=== PATIENT | male | born 1990 | race Caucasian/White ===

== ENCOUNTER → 2020-07-13 | Outpatient (CLI) | payer SELFPAY | LOC: M OUTALCOH 10:30 | PROVIDERS: ATTEND Psychiatry & Neurology Addiction Medicine | DX: F11.20 Opioid dependence, uncomplicated (principal) ==

== ENCOUNTER → 2020-08-25 | Outpatient (CLI) | payer OTHER, SELFPAY | LOC: M OUTALCOH 12:57 | PROVIDERS: ATTEND Psychiatry & Neurology Addiction Medicine | DX: Z13.39 Encounter for screening examination for other mental health and behavioral disorders (principal); F11.20 Opioid dependence, uncomplicated ==

== ENCOUNTER 2020-09-09 13:38 | Outpatient (RCR) | payer SELFPAY | END 2020-09-14 | LOC: M OUTALCOH 13:38 | PROVIDERS: ATTEND Psychiatry & Neurology Addiction Medicine | DX: F11.20 Opioid dependence, uncomplicated (principal); F14.10 Cocaine abuse, uncomplicated; F12.20 Cannabis dependence, uncomplicated; F17.200 Nicotine dependence, unspecified, uncomplicated ==

== ENCOUNTER → 2020-10-15 | Outpatient (RCR) | payer OTHER, SELFPAY | LOC: M OUTALCOH 09-15 13:42 | PROVIDERS: ATTEND Psychiatry & Neurology Addiction Medicine | DX: F11.20 Opioid dependence, uncomplicated (principal); F14.10 Cocaine abuse, uncomplicated; F12.20 Cannabis dependence, uncomplicated; F17.200 Nicotine dependence, unspecified, uncomplicated | CPT/HCPCS: 90832; 90834; H0038 ==

== ENCOUNTER 2020-11-12 10:00 | Outpatient (RCR) | payer OTHER | END 2020-11-15 | LOC: M OUTALCOH 10:00 | PROVIDERS: ATTEND Psychiatry & Neurology Addiction Medicine | DX: F11.11 Opioid abuse, in remission (principal); F14.11 Cocaine abuse, in remission; F12.11 Cannabis abuse, in remission; F17.200 Nicotine dependence, unspecified, uncomplicated ==

== ENCOUNTER 2020-12-09 14:12 | Outpatient (RCR) | payer OTHER | END 2020-12-13 | LOC: M OUTALCOH 14:12 | PROVIDERS: ATTEND Psychiatry & Neurology Addiction Medicine | DX: F11.11 Opioid abuse, in remission (principal); F14.11 Cocaine abuse, in remission; F12.11 Cannabis abuse, in remission; F17.200 Nicotine dependence, unspecified, uncomplicated ==

== ENCOUNTER → 2021-01-13 | Outpatient (RCR) | payer OTHER | LOC: M OUTALCOH 12-14 14:00 | PROVIDERS: ATTEND Psychiatry & Neurology Psychiatry | DX: F11.11 Opioid abuse, in remission (principal); F14.11 Cocaine abuse, in remission; F12.11 Cannabis abuse, in remission; F17.200 Nicotine dependence, unspecified, uncomplicated ==

== ENCOUNTER → 2021-02-12 | Outpatient (RCR) | payer OTHER | LOC: M OUTALCOH 01-18 16:00 | PROVIDERS: ATTEND Psychiatry & Neurology Psychiatry | DX: F11.11 Opioid abuse, in remission (principal); F14.11 Cocaine abuse, in remission; F12.11 Cannabis abuse, in remission; F17.200 Nicotine dependence, unspecified, uncomplicated ==

== ENCOUNTER 2021-03-05 14:00 | Outpatient (RCR) | payer OTHER | END 2021-03-15 | LOC: M OUTALCOH 14:00 | PROVIDERS: ATTEND Psychiatry & Neurology Psychiatry | DX: F11.11 Opioid abuse, in remission (principal); F14.11 Cocaine abuse, in remission; F12.11 Cannabis abuse, in remission; F17.200 Nicotine dependence, unspecified, uncomplicated ==

== ENCOUNTER → 2021-03-22 | Outpatient (REF) | LOC: M LABSMTC 14:04 | PROVIDERS: ATTEND Pediatrics | DX: Z02.1 Encounter for pre-employment examination (principal) ==

== ENCOUNTER 2021-03-25 15:30 | Emergency (ER) | payer OTHER ==
[~2021-03-25] VITALS: Ht 177.8 cm; Wt 124.9 kg
[2021-03-25 15:31] VITALS: BP 140/90
[2021-03-25] MEDS ORDERED: BUPR1FIL3 (15:40)
[2021-03-25] MEDS ORDERED: SERT50TA29 (15:40)
[2021-03-25] MEDS ORDERED: LAMO25TA4 (15:40)
--- NOTE | 2021-03-25 16:03 | REP ---
INDICATION: cough, SOB COMPARISON: None. TECHNIQUE: PA/Lateral FINDINGS: Lungs: Clear, no infiltrate. Heart: Normal in size. Mediastinum: Mediastinal silhouette unremarkable. Pleural angles: Unremarkable.. Bones and soft tissues: Unremarkable. IMPRESSION: No acute pulmonary disease. <Electronically signed by Jaime Jin > 03/25/21 1600
[2021-03-25] MEDS ORDERED: ZITHTAB PO (17:02)
[2021-03-25] MEDS ORDERED: TESS100C PO (17:02)
[2021-03-25] MEDS ORDERED: PRED20TA PO (17:02)
== END 2021-03-25 17:31 | disposition home or self-care (01) ==
LOC: M ED 15:30
DX: J20.9 Acute bronchitis, unspecified (principal); F17.200 Nicotine dependence, unspecified, uncomplicated; Z79.899 Other long term (current) drug therapy

== ENCOUNTER → 2021-04-14 | Outpatient (RCR) | payer OTHER ==
[~2021-04-14] MED LIST: BUPR1FIL3; LAMO25TA4; PRED20TA PO; SERT50TA29; TESS100C PO; ZITHTAB PO
== END ==
LOC: M OUTALCOH 13:45
PROVIDERS: ATTEND Psychiatry & Neurology Psychiatry
DX: F11.11 Opioid abuse, in remission (principal); F14.11 Cocaine abuse, in remission; F12.11 Cannabis abuse, in remission; F17.200 Nicotine dependence, unspecified, uncomplicated

== ENCOUNTER 2021-05-12 09:00 | Outpatient (RCR) | payer OTHER | END 2021-05-15 | LOC: M OUTALCOH 09:00 | PROVIDERS: ATTEND Psychiatry & Neurology Psychiatry | DX: F11.11 Opioid abuse, in remission (principal); F14.11 Cocaine abuse, in remission; F12.11 Cannabis abuse, in remission; F17.200 Nicotine dependence, unspecified, uncomplicated ==

== ENCOUNTER 2021-07-12 14:48 | Outpatient (RCR) | payer OTHER | END 2021-07-15 | LOC: M OUTALCOH 14:48 | PROVIDERS: ATTEND Psychiatry & Neurology Psychiatry | DX: F11.11 Opioid abuse, in remission (principal); F14.11 Cocaine abuse, in remission; F12.11 Cannabis abuse, in remission; F17.200 Nicotine dependence, unspecified, uncomplicated ==

== ENCOUNTER 2021-07-28 10:00 | Outpatient (RCR) | payer OTHER | END 2021-08-15 | LOC: M OUTALCOH 10:00 | PROVIDERS: ATTEND Psychiatry & Neurology Psychiatry | DX: F14.11 Cocaine abuse, in remission (principal); F12.11 Cannabis abuse, in remission; F17.200 Nicotine dependence, unspecified, uncomplicated ==

== ENCOUNTER 2021-09-22 14:31 | Outpatient (RCR) | payer OTHER | END 2021-10-15 | LOC: M OUTALCOH 14:31 | PROVIDERS: ATTEND Psychiatry & Neurology Psychiatry | DX: F11.11 Opioid abuse, in remission (principal); F14.11 Cocaine abuse, in remission; F12.11 Cannabis abuse, in remission; F17.200 Nicotine dependence, unspecified, uncomplicated ==

== ENCOUNTER 2021-09-27 14:50 | Outpatient (RCR) | payer OTHER | END 2021-10-15 | LOC: M OUTALCOH 14:50 | PROVIDERS: ATTEND Psychiatry & Neurology Psychiatry | DX: F11.11 Opioid abuse, in remission (principal); F14.11 Cocaine abuse, in remission; F12.11 Cannabis abuse, in remission; F17.200 Nicotine dependence, unspecified, uncomplicated ==

== ENCOUNTER 2021-11-01 15:47 | Outpatient (RCR) | payer OTHER | END 2021-11-15 | LOC: M OUTALCOH 15:47 | PROVIDERS: ATTEND Psychiatry & Neurology Psychiatry | DX: F11.11 Opioid abuse, in remission (principal); F12.11 Cannabis abuse, in remission; F17.200 Nicotine dependence, unspecified, uncomplicated ==

== ENCOUNTER → 2021-12-13 | Outpatient (RCR) | payer OTHER | LOC: M OUTALCOH 15:05 | PROVIDERS: ATTEND Psychiatry & Neurology Psychiatry | DX: F11.11 Opioid abuse, in remission (principal); F14.11 Cocaine abuse, in remission; F12.11 Cannabis abuse, in remission; F17.200 Nicotine dependence, unspecified, uncomplicated ==

== ENCOUNTER 2022-01-17 13:53 | Outpatient (RCR) | payer OTHER | END 2022-02-12 | LOC: M OUTALCOH 13:53 | PROVIDERS: ATTEND Psychiatry & Neurology Psychiatry | DX: F11.11 Opioid abuse, in remission (principal); F14.11 Cocaine abuse, in remission; F12.11 Cannabis abuse, in remission; F17.200 Nicotine dependence, unspecified, uncomplicated ==

== ENCOUNTER 2022-02-28 14:04 | Outpatient (RCR) | payer OTHER | END 2022-03-15 | LOC: M OUTALCOH 14:04 | PROVIDERS: ATTEND Psychiatry & Neurology Psychiatry | DX: F11.11 Opioid abuse, in remission (principal); F14.11 Cocaine abuse, in remission; F12.11 Cannabis abuse, in remission; F17.200 Nicotine dependence, unspecified, uncomplicated ==

== ENCOUNTER 2022-04-11 14:00 | Outpatient (RCR) | payer OTHER | END 2022-04-14 | LOC: M OUTALCOH 14:00 | PROVIDERS: ATTEND Psychiatry & Neurology Psychiatry | DX: F11.11 Opioid abuse, in remission (principal); F14.11 Cocaine abuse, in remission; F12.11 Cannabis abuse, in remission; F17.200 Nicotine dependence, unspecified, uncomplicated ==

== ENCOUNTER 2022-05-18 12:47 | Outpatient (RCR) | payer OTHER | END 2022-06-15 | LOC: M OUTALCOH 12:47 | PROVIDERS: ATTEND Psychiatry & Neurology Psychiatry | DX: F11.11 Opioid abuse, in remission (principal); F14.11 Cocaine abuse, in remission; F12.11 Cannabis abuse, in remission; F17.200 Nicotine dependence, unspecified, uncomplicated ==

== ENCOUNTER 2022-07-14 13:57 | Outpatient (RCR) | payer OTHER | END 2022-07-15 | LOC: M OUTALCOH 13:57 | PROVIDERS: ATTEND Psychiatry & Neurology Psychiatry | DX: F11.11 Opioid abuse, in remission (principal); F14.11 Cocaine abuse, in remission; F12.11 Cannabis abuse, in remission; F17.200 Nicotine dependence, unspecified, uncomplicated ==

== ENCOUNTER 2022-07-20 13:01 | Outpatient (RCR) | payer OTHER | END 2022-08-15 | LOC: M OUTALCOH 13:01 | PROVIDERS: ATTEND Psychiatry & Neurology Psychiatry | DX: F11.11 Opioid abuse, in remission (principal); F14.11 Cocaine abuse, in remission; F12.11 Cannabis abuse, in remission; F17.200 Nicotine dependence, unspecified, uncomplicated ==

== ENCOUNTER 2022-09-22 13:00 | Outpatient (RCR) | payer OTHER | END 2022-10-15 | LOC: M OUTALCOH 13:00 | PROVIDERS: ATTEND Psychiatry & Neurology Psychiatry | DX: F11.11 Opioid abuse, in remission (principal); F14.11 Cocaine abuse, in remission; F12.11 Cannabis abuse, in remission; F17.200 Nicotine dependence, unspecified, uncomplicated ==

== ENCOUNTER 2022-11-10 15:21 | Outpatient (RCR) | payer OTHER | END 2022-11-15 | LOC: M OUTALCOH 15:21 | PROVIDERS: ATTEND Psychiatry & Neurology Psychiatry | DX: F11.11 Opioid abuse, in remission (principal); F14.11 Cocaine abuse, in remission; F12.11 Cannabis abuse, in remission; F17.200 Nicotine dependence, unspecified, uncomplicated ==

== ENCOUNTER 2022-12-15 13:06 | Outpatient (RCR) | payer OTHER | END 2023-01-13 | LOC: M OUTALCOH 13:06 | PROVIDERS: ATTEND Psychiatry & Neurology Psychiatry | DX: F11.11 Opioid abuse, in remission (principal); F14.11 Cocaine abuse, in remission; F12.11 Cannabis abuse, in remission; F17.200 Nicotine dependence, unspecified, uncomplicated ==

== ENCOUNTER 2023-02-02 12:54 | Outpatient (RCR) | payer OTHER | END 2023-02-12 | LOC: M OUTALCOH 12:54 | PROVIDERS: ATTEND Psychiatry & Neurology Psychiatry | DX: F14.11 Cocaine abuse, in remission (principal); F12.11 Cannabis abuse, in remission; F17.200 Nicotine dependence, unspecified, uncomplicated ==

== ENCOUNTER 2023-03-02 13:03 | Outpatient (RCR) | payer OTHER | END 2023-03-15 | LOC: M OUTALCOH 13:03 | PROVIDERS: ATTEND Psychiatry & Neurology Psychiatry | DX: F11.11 Opioid abuse, in remission (principal); F14.11 Cocaine abuse, in remission; F12.11 Cannabis abuse, in remission; F17.200 Nicotine dependence, unspecified, uncomplicated ==

== ENCOUNTER 2023-03-30 13:06 | Outpatient (RCR) | payer OTHER | END 2023-04-14 | LOC: M OUTALCOH 13:06 | PROVIDERS: ATTEND Internal Medicine | DX: F14.11 Cocaine abuse, in remission (principal); F12.11 Cannabis abuse, in remission; F17.200 Nicotine dependence, unspecified, uncomplicated; F11.11 Opioid abuse, in remission ==

== ENCOUNTER 2023-05-11 12:59 | Outpatient (RCR) | payer OTHER | END 2023-05-15 | LOC: M OUTALCOH 12:59 | PROVIDERS: ATTEND Psychiatry & Neurology Psychiatry | DX: F14.11 Cocaine abuse, in remission (principal); F12.11 Cannabis abuse, in remission; F17.200 Nicotine dependence, unspecified, uncomplicated; F11.11 Opioid abuse, in remission ==

== ENCOUNTER 2023-06-05 09:35 | Outpatient (RCR) | payer OTHER | END 2023-06-15 | LOC: M OUTALCOH 09:35 | PROVIDERS: ATTEND Psychiatry & Neurology Child & Adolescent Psychiatry | DX: F11.11 Opioid abuse, in remission (principal); F14.11 Cocaine abuse, in remission; F12.11 Cannabis abuse, in remission; F17.200 Nicotine dependence, unspecified, uncomplicated ==

== ENCOUNTER 2023-08-30 08:00 | Outpatient (RCR) | payer OTHER | END 2023-09-14 | LOC: M OUTALCOH 08:00 | PROVIDERS: ATTEND Psychiatry & Neurology Child & Adolescent Psychiatry | DX: F11.11 Opioid abuse, in remission (principal); F14.11 Cocaine abuse, in remission; F12.11 Cannabis abuse, in remission; F17.200 Nicotine dependence, unspecified, uncomplicated ==

== ENCOUNTER 2023-09-25 09:59 | Outpatient (RCR) | payer OTHER | END 2023-10-15 | LOC: M OUTALCOH 09:59 | PROVIDERS: ATTEND Psychiatry & Neurology Child & Adolescent Psychiatry | DX: F10.20 Alcohol dependence, uncomplicated (principal); F12.20 Cannabis dependence, uncomplicated; F17.200 Nicotine dependence, unspecified, uncomplicated ==

== ENCOUNTER 2023-11-06 09:00 | Outpatient (RCR) | payer OTHER | END 2023-11-15 | LOC: M OUTALCOH 09:00 | PROVIDERS: ATTEND Psychiatry & Neurology Child & Adolescent Psychiatry | DX: F11.11 Opioid abuse, in remission (principal); F14.11 Cocaine abuse, in remission; F12.11 Cannabis abuse, in remission; F17.200 Nicotine dependence, unspecified, uncomplicated ==

== ENCOUNTER 2023-12-11 09:59 | Outpatient (RCR) | payer OTHER | END 2023-12-14 | LOC: M OUTALCOH 09:59 | PROVIDERS: ATTEND Psychiatry & Neurology Psychiatry | DX: F11.11 Opioid abuse, in remission (principal); F14.11 Cocaine abuse, in remission; F12.11 Cannabis abuse, in remission; F17.200 Nicotine dependence, unspecified, uncomplicated ==

== ENCOUNTER 2024-01-08 09:30 | Outpatient (RCR) | payer OTHER | END 2024-01-14 | LOC: M OUTALCOH 09:30 | PROVIDERS: ATTEND Psychiatry & Neurology Psychiatry | DX: F11.11 Opioid abuse, in remission (principal); F14.11 Cocaine abuse, in remission; F12.11 Cannabis abuse, in remission; F17.200 Nicotine dependence, unspecified, uncomplicated ==

== ENCOUNTER 2024-01-31 10:00 | Outpatient (RCR) | payer OTHER | END 2024-02-13 | LOC: M OUTALCOH 10:00 | PROVIDERS: ATTEND Psychiatry & Neurology Psychiatry | DX: F11.11 Opioid abuse, in remission (principal); F14.11 Cocaine abuse, in remission; F12.11 Cannabis abuse, in remission; F17.200 Nicotine dependence, unspecified, uncomplicated ==

== ENCOUNTER 2024-03-04 10:30 | Outpatient (RCR) | payer OTHER | END 2024-03-15 | LOC: M OUTALCOH 10:30 | PROVIDERS: ATTEND Psychiatry & Neurology Psychiatry | DX: F11.11 Opioid abuse, in remission (principal); F14.11 Cocaine abuse, in remission; F12.11 Cannabis abuse, in remission; F17.200 Nicotine dependence, unspecified, uncomplicated ==

== ENCOUNTER 2024-04-08 14:14 | Outpatient (RCR) | payer OTHER | END 2024-04-14 | LOC: M OUTALCOH 14:14 | PROVIDERS: ATTEND Psychiatry & Neurology Child & Adolescent Psychiatry | DX: F11.11 Opioid abuse, in remission (principal); F14.11 Cocaine abuse, in remission; F12.11 Cannabis abuse, in remission; F17.200 Nicotine dependence, unspecified, uncomplicated ==

== ENCOUNTER 2024-04-29 09:11 | Outpatient (RCR) | payer OTHER | END 2024-05-15 | LOC: M OUTALCOH 09:11 | PROVIDERS: ATTEND Psychiatry & Neurology Child & Adolescent Psychiatry | DX: F11.11 Opioid abuse, in remission (principal); F14.11 Cocaine abuse, in remission; F12.11 Cannabis abuse, in remission; F17.200 Nicotine dependence, unspecified, uncomplicated ==

== ENCOUNTER 2024-06-06 15:03 | Outpatient (RCR) | payer OTHER | END 2024-06-15 | LOC: M OUTALCOH 15:03 | PROVIDERS: ATTEND Psychiatry & Neurology Psychiatry | DX: F11.11 Opioid abuse, in remission (principal); F14.11 Cocaine abuse, in remission; F12.11 Cannabis abuse, in remission; F17.200 Nicotine dependence, unspecified, uncomplicated ==

== ENCOUNTER 2024-07-01 11:03 | Outpatient (RCR) | payer OTHER | END 2024-07-15 | LOC: M OUTALCOH 11:03 | PROVIDERS: ATTEND Psychiatry & Neurology Psychiatry | DX: F11.11 Opioid abuse, in remission (principal); F14.11 Cocaine abuse, in remission; F12.11 Cannabis abuse, in remission; F17.200 Nicotine dependence, unspecified, uncomplicated ==

== ENCOUNTER 2024-07-29 11:00 | Outpatient (RCR) | payer OTHER | END 2024-08-15 | LOC: M OUTALCOH 11:00 | PROVIDERS: ATTEND Psychiatry & Neurology Psychiatry | DX: F11.11 Opioid abuse, in remission (principal); F14.11 Cocaine abuse, in remission; F12.11 Cannabis abuse, in remission; F17.200 Nicotine dependence, unspecified, uncomplicated ==

== ENCOUNTER 2024-09-02 15:00 | Outpatient (RCR) | payer OTHER | END 2024-09-14 | LOC: M OUTALCOH 15:00 | PROVIDERS: ATTEND Psychiatry & Neurology Psychiatry | DX: F11.11 Opioid abuse, in remission (principal); F14.11 Cocaine abuse, in remission; F12.11 Cannabis abuse, in remission; F17.200 Nicotine dependence, unspecified, uncomplicated ==

== ENCOUNTER 2024-10-14 15:51 | Outpatient (RCR) | payer OTHER | END 2024-10-15 | LOC: M OUTALCOH 15:51 | PROVIDERS: ATTEND Psychiatry & Neurology Psychiatry | DX: F11.11 Opioid abuse, in remission (principal); F14.11 Cocaine abuse, in remission; F12.11 Cannabis abuse, in remission; F17.200 Nicotine dependence, unspecified, uncomplicated ==

== ENCOUNTER 2024-10-21 10:37 | Outpatient (RCR) | payer OTHER | END 2024-11-15 | LOC: M OUTALCOH 10:37 | PROVIDERS: ATTEND Psychiatry & Neurology Psychiatry | DX: F11.11 Opioid abuse, in remission (principal); F14.11 Cocaine abuse, in remission; F12.11 Cannabis abuse, in remission; F17.200 Nicotine dependence, unspecified, uncomplicated ==

== ENCOUNTER 2024-12-02 10:49 | Outpatient (RCR) | payer OTHER | END 2024-12-13 | LOC: M OUTALCOH 10:49 | PROVIDERS: ATTEND Psychiatry & Neurology Psychiatry | DX: F11.11 Opioid abuse, in remission (principal); F14.11 Cocaine abuse, in remission; F12.11 Cannabis abuse, in remission; F17.200 Nicotine dependence, unspecified, uncomplicated ==

== ENCOUNTER 2024-12-30 09:31 | Outpatient (RCR) | payer OTHER | END 2025-01-13 | LOC: M OUTALCOH 09:31 | PROVIDERS: ATTEND Psychiatry & Neurology Psychiatry | DX: F11.11 Opioid abuse, in remission (principal); F14.11 Cocaine abuse, in remission; F12.11 Cannabis abuse, in remission; F17.200 Nicotine dependence, unspecified, uncomplicated ==

== ENCOUNTER 2025-01-27 09:08 | Outpatient (RCR) | payer OTHER | END 2025-02-12 | LOC: M OUTALCOH 09:08 | PROVIDERS: ATTEND Psychiatry & Neurology Psychiatry | DX: F11.11 Opioid abuse, in remission (principal); F14.11 Cocaine abuse, in remission; F12.11 Cannabis abuse, in remission; F17.200 Nicotine dependence, unspecified, uncomplicated ==

== ENCOUNTER 2025-06-10 15:56 | Outpatient (RCR) | payer OTHER ==
[~2025-06-10 15:56] MED LIST changes: +LAMO-18; -LAMO25TA4
== END 2025-06-15 ==
LOC: M OUTALCOH 15:56
PROVIDERS: ATTEND Psychiatry & Neurology Psychiatry
DX: F11.11 Opioid abuse, in remission (principal); F14.11 Cocaine abuse, in remission; F12.11 Cannabis abuse, in remission; F17.200 Nicotine dependence, unspecified, uncomplicated

== ENCOUNTER 2025-07-07 09:51 | Outpatient (RCR) | payer OTHER | END 2025-07-15 | LOC: M OUTALCOH 09:51 | PROVIDERS: ATTEND Psychiatry & Neurology Psychiatry | DX: F11.11 Opioid abuse, in remission (principal); F14.11 Cocaine abuse, in remission; F12.11 Cannabis abuse, in remission; F17.200 Nicotine dependence, unspecified, uncomplicated ==

== ENCOUNTER 2025-08-04 10:37 | Outpatient (RCR) | payer OTHER | END 2025-08-15 | LOC: M OUTALCOH 10:37 | PROVIDERS: ATTEND Psychiatry & Neurology Psychiatry | DX: F11.11 Opioid abuse, in remission (principal); F14.11 Cocaine abuse, in remission; F12.11 Cannabis abuse, in remission; F17.200 Nicotine dependence, unspecified, uncomplicated ==

== ENCOUNTER 2025-09-01 10:27 | Outpatient (RCR) | payer OTHER | END 2025-09-14 | LOC: M OUTALCOH 10:27 | PROVIDERS: ATTEND Psychiatry & Neurology Psychiatry | DX: F11.11 Opioid abuse, in remission (principal); F14.11 Cocaine abuse, in remission; F12.11 Cannabis abuse, in remission; F17.200 Nicotine dependence, unspecified, uncomplicated ==

== ENCOUNTER 2025-09-29 10:00 | Outpatient (RCR) | payer OTHER | END 2025-10-15 | LOC: M OUTALCOH 10:00 | PROVIDERS: ATTEND Psychiatry & Neurology Psychiatry | DX: F11.11 Opioid abuse, in remission (principal); F14.11 Cocaine abuse, in remission; F12.11 Cannabis abuse, in remission; F17.200 Nicotine dependence, unspecified, uncomplicated ==